=== PATIENT | female | born 1970 | race Caucasian/White ===

== ENCOUNTER 2022-08-20 14:09 | Outpatient (OUT) | payer OTHER, SELFPAY ==
--- NOTE | 2022-08-20 14:51 | XR_ITS ---
The [address] [address] Patient Name: MYRANDA VARNER MRN: [id number] date: 1970 Sex: F Assigned Patient Location: [facility] Current Patient Location: [facility] Accession/Order Number: [id number] Exam Date: 08/20/2022 14:51 Report Date: 08/20/2022 17:48 At the request of: EUGENIO ROJO Procedure: XR ankle LT min 3V PROCEDURE: XR foot LT min 3V, XR ankle LT min 3V HISTORY: LEFT FOOT PAIN ; history of left ankle fracture COMPARISON: XR ankle left 12/30/2018 FINDINGS: BONES:Prior plate and screw repair of lateral malleolus with new 3 mm backing out of the distal screw within the plate. Prior band effusion of the tibia-fibula syndesmosis. SOFT TISSUES:No visible soft tissue swelling. EFFUSION:None visible. OTHER: Negative. XR/XR ankle LT min 3V IMPRESSION: 1. No acute bone abnormality or significant degenerative joint disease. 2. Intact hardware, but there is slight backing out of the distal screw within the lateral malleolus since the 2019 study. Electronically authenticated by: FORD BONILLA Date: 08/20/2022 17:48
--- NOTE | 2022-08-20 14:51 | XR_ITS ---
The [address] [address] Patient Name: MYRANDA VARNER MRN: [id number] date: 1970 Sex: F Assigned Patient Location: [facility] Current Patient Location: [facility] Accession/Order Number: [id number] Exam Date: 08/20/2022 14:51 Report Date: 08/20/2022 17:48 At the request of: EUGENIO ROJO Procedure: XR foot LT min 3V PROCEDURE: XR foot LT min 3V, XR ankle LT min 3V HISTORY: LEFT FOOT PAIN ; history of left ankle fracture COMPARISON: XR ankle left 12/30/2018 FINDINGS: BONES:Prior plate and screw repair of lateral malleolus with new 3 mm backing out of the distal screw within the plate. Prior band effusion of the tibia-fibula syndesmosis. SOFT TISSUES:No visible soft tissue swelling. EFFUSION:None visible. OTHER: Negative. XR/XR foot LT min 3V IMPRESSION: 1. No acute bone abnormality or significant degenerative joint disease. 2. Intact hardware, but there is slight backing out of the distal screw within the lateral malleolus since the 2019 study. Electronically authenticated by: FORD BONILLA Date: 08/20/2022 17:48
== END 2022-08-20 14:10 | disposition home or self-care (01) ==
LOC: RAD 14:09
PROVIDERS: Visit Provider Podiatrist Foot & Ankle Surgery
DX: M19.072 Primary osteoarthritis, left ankle and foot (principal)
CPT/HCPCS: 73610; 73630

== ENCOUNTER 2022-08-27 12:58 | Outpatient (OUT) | payer OTHER, SELFPAY ==
--- NOTE | 2022-08-27 13:12 | CT_ITS ---
[place] [id number] Patient Name: MYRANDA VARNER MRN: [id number] date: 1970 Sex: F Assigned Patient Location: CT Current Patient Location: CT Accession/Order Number: [id number] Exam Date: 08/27/2022 13:17 Report Date: 08/27/2022 18:32 At the request of: EUGENIO ROJO Procedure: CT ankle LT wo con EXAMINATION: CT ankle LT wo con HISTORY: Post Traumatic Osteoarthritis M19.172 COMPARISON: 08/20/2022 TECHNIQUE: Multi-planar CT images were created without IV contrast. Dose reduction techniques were achieved by using automated exposure control and/or adjustment of mA and/or kV according to patient size and/or use of iterative reconstruction technique. FINDINGS: BONES: No acute fracture or dislocation. Mild to moderate tricompartmental osteoarthropathy of the knee with moderate narrowing of the medial joint space. Moderate to severe degenerative changes of the tibiotalar joint with asymmetric narrowing of the medial ankle mortise and subchondral mixed lytic and sclerotic changes primarily along the medial to midportion of the anterior tibial plafond and. Remote fixation of the distal fibula with a lateral plate and screws. Banding of the tibiofibular syndesmosis. Moderate enthesopathic spurring of the calcaneus SOFT TISSUES: Negative. No visible soft tissue swelling. EFFUSION: None visible. OTHER: Negative. 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
== END 2022-08-27 12:59 | disposition home or self-care (01) ==
LOC: CT 13:01
PROVIDERS: Visit Provider Podiatrist Foot & Ankle Surgery
DX: M19.172 Post-traumatic osteoarthritis, left ankle and foot (principal); T84.84XA Pain due to internal orthopedic prosthetic devices, implants and grafts, initial encounter
CPT/HCPCS: 73700

== ENCOUNTER 2022-09-19 11:02 | Outpatient (OUT) | payer OTHER, SELFPAY ==
--- NOTE | 2022-09-19 11:07 | ECG_ITS ---
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
--- NOTE | 2022-09-19 11:53 | PM.PRESUREVA ---
History of Present Illness History of Present Illness Chief complaint: post traumatic arthritis left ankle and foot Narrative: Patient presents for preadmission testing. Please see HPI from Dr. Jain dated 09/10/2022. Review of Systems ROS Narrative Please see ROS from Dr. Jain dated 09/10/2022. Note: Patient admits to dyspnea on exertion [facility] Medical History (Updated 09/19/22 @ 11:58 by Hui Lara NP) Surgical History (Updated 09/19/22 @ 11:34 by Hui Lara NP) (08/05/18) (10/15/18) (06/11/18) (2010) (09/16/18) Family History (Updated 09/19/22 @ 11:34 by Hui Lara NP) Other Family history of cervical cancer Family history of diabetes mellitus Family history of heart disease Family history of hypertension Family history of lung cancer Family history of myocardial infarction Family history of stroke Social History (Updated 09/19/22 @ 11:26 by Hui Lara NP) Within the past year, how often did you have a drink containing alcohol: monthly or less Smoking status: Former smoker Non-prescribed substance use: denies use Previous occupational history: factory Highest level of school completed/degree received: high school graduate Meds Home Medications and Allergies Home Medications Medication Instructions Recorded Confirmed Type ascorbic acid (vitamin C) 500 mg mg PO 09/19/22 History capsule aspirin 81 mg tablet,delayed 81 mg PO DAILY 09/19/22 09/19/22 History release (Adult Aspirin Regimen) cholecalciferol (vitamin D3) 1,250 1,250 mcg PO QDAY 09/19/22 09/19/22 History mcg (50,000 unit) capsule famotidine 20 mg tablet 20 mg PO Q12H 09/19/22 09/19/22 History ferrous sulfate 325 mg (65 mg 325 mg PO DAILY 09/19/22 09/19/22 History iron) tablet (Feosol) glucosamine 375 rt-qryjfvbzj-afz tab PO 09/19/22 History no1 500 mg-C 15 mg-ida 0.5 mg tablet (Nzjacwfughn-Rqwzofpjxrj-DYL Complex) ibuprofen 600 mg tablet 600 mg PO Q6H PRN pain 09/19/22 09/19/22 History lisinopril 20 1 tab PO QDAY 09/19/22 09/19/22 History mg-hydrochlorothiazide 12.5 mg tablet magnesium 250 mg tablet 250 mg PO DAILY 09/19/22 09/19/22 History melatonin 10 mg capsule 10 mg PO DAILY 09/19/22 09/19/22 History meloxicam 15 mg tablet 15 mg PO QDAY 09/19/22 09/19/22 History multivitamin (Daily Multi-Vitamin 1 tab PO DAILY 09/19/22 09/19/22 History tablet) rosuvastatin 10 mg tablet 10 mg PO QDAY 09/19/22 09/19/22 History vitamin B12 500 mcg-folic acid 400 1 tab PO DAILY 09/19/22 09/19/22 History mcg tablet Allergies Allergy/AdvReac Type Severity Reaction Status Date / Time meperidine [From Demerol] Allergy Vomiting Verified 09/19/22 11:20 onion Allergy Vomiting Verified 09/19/22 11:20 Exam Narrative Exam Narrative: Constitutional: Awake, alert, comfortable, well-appearing, nontoxic, interactive, vital signs as charted Head: Normocephalic, atraumatic Neck: Supple, normal appearance, normal range of motion, no meningeal signs, no lymphadenopathy Respiratory: No respiratory distress, breath sounds clear Cardiovascular: Regular rate and rhythm, strong and regular heart tones Psychiatric: Oriented ?3, normal affect Assessment and Plan Assessment and Plan (1) Painful orthopaedic hardware: (2) Post-traumatic osteoarthritis of ankle: Plan Left ankle arthroscopy and possible arthrotomy, removal of deep implanted hardware, stress exam under fluoroscopy, soft tissue repairs/releases as needed scheduled with Dr. Jain 09/25/2022.
[2022-09-19 12:06] LABS: Anion Gap 10.9; BUN Creatinine Ratio 25.5; Calcium 9.7 mg/dL (8.5-10.1); Carbon Dioxide 26.6 mmol/L (21.0-32.0); Chloride 105 mmol/L (98-107); Estimated GFR (African America >60 (>=60); Estimated GFR (Non-African Ame 54 (>=60); Glucose 100 mg/dL (74-106); Potassium 4.5 mmol/L (3.5-5.1); Sodium 138 mmol/L (136-145)
[2022-09-19 12:07] LABS: Basophils Percent Auto 0.5 % (0.2-2.0); Eosinophils Absolute Auto 0.3 10^3/uL (0.0-0.7); Eosinophils Percent Auto 3.8 % (0.9-7.0); Hematocrit 36.3 % (36.0-48.0); Hemoglobin 12.5 g/dL (12.0-16.0); Immature Granulocytes Abs Auto 0.02 10^3/uL (0.00-0.03); Immature Granulocytes Pct Auto 0.2 % (0.0-0.5); Lymphocytes Absolute Auto 2.5 10^3/uL (1.2-3.8); Lymphocytes Percent Auto 29.8 % (20.5-60.0); Mean Corpuscular HGB Conc 34.4 g/dL (29.9-35.2); Mean Corpuscular Hemoglobin 31.6 pg (26.7-34.0); Mean Corpuscular Volume 91.7 fL (81.0-99.0); Mean Platelet Volume 8.6 fL (9.5-13.5); Monocytes Absolute Auto 0.7 10^3/uL (0.3-0.8); Neutrophils Absolute Auto 4.9 10^3/uL (1.4-6.5); Neutrophils Percent Auto 57.7 % (43.0-75.0); Platelet Count 302 10^3/uL (150-450); Red Blood Count 3.96 10^6/uL (4.20-5.40); Red Cell Distribution Width 12.4 % (11.0-15.0); White Blood Count 8.5 10^3/uL (4.0-11.0)
== END 2022-09-19 11:03 | disposition home or self-care (01) ==
PROVIDERS: Visit Provider Podiatrist Foot & Ankle Surgery
DX: Z01.810 Encounter for preprocedural cardiovascular examination (principal); Z01.812 Encounter for preprocedural laboratory examination; M19.172 Post-traumatic osteoarthritis, left ankle and foot; T84.84XA Pain due to internal orthopedic prosthetic devices, implants and grafts, initial encounter
CPT/HCPCS: 80048; 85025; 93005; G0463

== ENCOUNTER 2022-10-09 06:51 | Day surgery (SDC) | payer OTHER, SELFPAY ==
[2022-09-19 11:51] VITALS: BP 124/83; PULSE 65; RESP 16; TEMP 36.3; O2SAT 97; BMI 32.6
[2022-10-09] VITALS (11 sets, daily range): BP systolic 86–121; BP diastolic 56–75; PULSE 68–96; RESP 13–23; TEMP 36.4–37; O2SAT 90–96; BMI 32.6
[2022-10-09 07:11] LABS: Glucometer 106 mg/dL (74-106)
[2022-10-09] MEDS: LACTATED RINGER'S SOLUTION 1,000 ML 50 ML IV ×2 (07:26→10:23)
[2022-10-09] MEDS: CEFAZOLIN SODIUM/DEXTROSE,ISO 2 GM/50 ML PIGGYBACK IV (09:12)
--- NOTE | 2022-10-09 09:42 | P.ORON_ITS ---
Brief Operative Note Date of procedure: 10/09/22 Pre-op diagnosis: left posttraumatic arthritis, painful hardware, ankle sprain sequela Post-op diagnosis: other (left ankle posttraumatic arthritis, ankle impingement, painful retained hardware, ankle sprain and fracture sequela status post ORIF of fibular fracture with syndesmotic stabilization) Procedure: PROCEDURE(S) PERFORMED: left ankle arthroscopy, removal of deep implanted orthopedic hardware and ankle arthrotomy with excision of osteophytes, stress examination under intraoperative fluoroscopy INTRAOPERATIVE FINDINGS: significant amount of chronic synovitis and soft tissue impingement noted in the anterior ankle as well as lateral gutter. Small osteophyte on the dorsal talar neck and larger osteophyte noted on the anterior distal tibial plafond. Advanced arthritic changes noted within the tibiotalar joint space. Fibular fracture is healed and syndesmosis stable after hardware removal. Ankle collateral ligaments were also stable. PROCEDURE IN DETAIL: Patient was identified in pre op and consent was reviewed. Correct side and site were identified and marked. Pre-op antibiotics were started. Patient was brought to OR suite and place on table in a supine position. General anesthesia was administered. Thigh tourniquet applied. Operative extremity was prepped and draped in usual sterile fashion and place in a well-padded leg leonardo. Formal time-out was performed. The intermediate dorsal cutaneous nerve was identified and marked. The ankle was insufflated with 15 cc of sterile saline and the foot, ankle and calf were exsanguinated and tourniquet inflated. Marcaine was injected as a standard ankle block while no anesthetic was injected into the joint. Standard anterior medial ankle portal was created with a scalpel. Blunt dissection was performed then the trochar and cannula were inserted with the ankle held in maximum dorsiflexion. Inspection of the ankle demonstrated significant acute and chronic synovitis with impingement. A needle was inserted into the anterior lateral ankle in standard safe zone and was identified then removed. A second 1 cm incision was created over anterior lateral ankle followed by blunt dissection to ensure the intermediate dorsal cutaneous nerve was protected. A 3.5 mm aggressive shaver was inserted into this portal and used to resect all impingement and synovitic tissue. osseous impingement was notable after removal of all soft tissue impingement. Chondromalacia and cartilage degeneration consistent with post right arthritis is noted of the talar dome and distal tibia. Arthroscopic instruments were removed. The medial portal was extended proximally and distally and the capsule was meticulously reflected exposing the anterior distal tibia and dorsal talar neck. With the use of osteotomes and rongeurs osteophytes were then excised and passed the back table. A rasp was used to contour appropriately. Fluoroscopy confirmed adequate removal of the osteophytes and range of motion dorsiflexion didn't improve without impingement. Incision was placed along the lateral fibula and a combination sharp and blunt dissection gained access to plate and screw construct. Then incision was placed on the medial aspect of the distal tibia. Blunt dissection down to suture button anchors was performed. Once the buttons were exposed the suture was cut allowing button to be removed. Then attention was drawn back to the fibula where the remainder of the suture button anchor was removed in total. The screws were removed with appropriate screwdriver and the plate was removed with the aid of an osteotome. Fracture was healed and bone quality was within normal limits given patient's age and gender. Screw holes were curetted until healthy bleeding bone. The ankle joint was then stressed in all planes including syndesmotic and was noted to be stable. Surgical sites were irrigated copiously saline and incisions were closed in layers. The tourniquet was deflated with a prompt hyperemic response. A dry sterile dressing was applied and a cam boot will be applied in the recovery room. Patient tolerated the procedure and anesthesia well was transferred to recovery room with vital signs stable and brisk capillary refill to the toes. POSTOPERATIVE PLAN: Discharge home under family's care Post op instructions provided verbally and written prescription(s) were placed in chart weightbearing as tolerated in cam boot until incisions have healed Follow-up in 1 week Implants: none Anesthesia: General-LMA Surgeon: Sudeep Jain Computer Service Technician: Gianni Altman Estimated blood loss (mL): 10 Pathology: none sent Condition: stable Disposition: PACU Preoperative Details Reason for procedure: Patient is a 52 year old female who underwent left ankle O RIF with syndesmotic repair by Dr. Alberts on 10/15/21. patient presented to my office relating to persistent pain particularly over the lateral malleolus where the plate and screws were palpable. She also related that she has difficulty with uneven surfaces and feels as if the ankle is unstable. Her past medical history significant for vitamin D deficiency and peripheral neuropathy therefore a CT scan was ordered which confirmed that fractures were healed and that the syndesmosis was reduced although it was significantly arthritic. In addition there was anterior tibial and dorsal talar neck osteophyte. clinically patient had pain with maximum ankle joint dorsiflexion as well as direct palpation over these osteophytes. I recommended arthroscopy, stability testing and hardware removal with possible repairs of ligaments as needed. I did however discuss that on her CT her arthritic changes were advanced and there were cystic degeneration noted in the talar body. Due to these findings patient may require more extensive reconstructive surgery in the future however given recovery is much shorter with the proposed procedure patient agreed to to proceed knowing that she could require additional surgery in the future. I reviewed the possible risks and benefits and all questions were answered to her satisfaction.
--- NOTE | 2022-10-09 11:00 | FL_ITS ---
The [address] [address] Patient Name: MYRANDA VARNER MRN: [id number] date: 1970 Sex: F Assigned Patient Location: [facility] Current Patient Location: [facility] Accession/Order Number: [id number] Exam Date: 10/09/2022 09:55 Report Date: 10/10/2022 07:30 At the request of: EUGENIO ROJO Procedure: FL fluoroscopy <1hr EXAMINATION: FL fluoroscopy <1hr HISTORY: LEFT ANKLE HARWEAR REMOVAL COMPARISON: No relevant comparison available. FLUOROSCOPY TIME: Fluoro time measures 29.7 seconds, 1.11 mgy and 5 images were obtained. TECHNIQUE: Standard level fluoroscopic mode of operation utilized. FINDINGS: Intraprocedural images demonstrate removal of the tibiofibular syndesmosis device as well as the lateral fibular plate and screws. Anatomic alignment. Joint air likely postsurgical FL/FL fluoroscopy <1hr IMPRESSION: Interval removal of internal fixation hardware Electronically authenticated by: DOMINGO WYMAN Date: 10/10/2022 07:30
[2022-10-09] MEDS: BUPIVACAINE HCL 0.5% PF 50 MG/10 ML VIAL 20 ML INJ (11:41)
[2022-10-09] MEDS: BETAMETHASONE ACE/BETAMETHASONE SOD PHOS 30 MG/5 ML 12 MG IM (11:42)
--- NOTE | 2022-10-09 12:16 | XR_ITS ---
The [address] [address] Patient Name: MYRANDA VARNER MRN: [id number] date: 1970 Sex: F Assigned Patient Location: [facility] Current Patient Location: [facility] Accession/Order Number: [id number] Exam Date: 10/09/2022 12:20 Report Date: 10/09/2022 12:53 At the request of: BEVERLY THOMAS Procedure: XR ankle LT min 3V PROCEDURE: XR ankle LT min 3V HISTORY: postop xr pacu COMPARISON: XR ankle left 08/20/2022 FINDINGS: BONES:Interval removal of distal fibula plate and screws and tibia-fibula syndesmosis bands. No fracture or dislocation. Calcaneal plantar spur. SOFT TISSUES:Subcutaneous free air and swelling consistent with recent surgery. EFFUSION:None visible. OTHER: Negative. XR/XR ankle LT min 3V IMPRESSION: 1. Postsurgical changes as detailed above. Electronically authenticated by: FORD BONILLA Date: 10/09/2022 12:53
[2022-10-09 12:23] LABS: Glucometer 121 mg/dL (74-106)
== END 2022-10-09 13:00 | disposition home or self-care (01) ==
PROVIDERS: Visit Provider Podiatrist Foot & Ankle Surgery
PROC: (CPT 20680; principal; 2022-10-09 08:00)
DX: M19.172 Post-traumatic osteoarthritis, left ankle and foot (principal); T84.84XA Pain due to internal orthopedic prosthetic devices, implants and grafts, initial encounter; I10 Essential (primary) hypertension; Z87.891 Personal history of nicotine dependence; Z79.82 Long term (current) use of aspirin; Z79.899 Other long term (current) drug therapy; Z90.710 Acquired absence of both cervix and uterus; S93.432S Sprain of tibiofibular ligament of left ankle, sequela; M24.572 Contracture, left ankle
CPT/HCPCS: 20680; 27610; 29898; 36415; 73610; 76000; 82948; J0702; J1170; J2704

== ENCOUNTER 2023-05-19 13:12 | Outpatient (OUT) | payer OTHER, SELFPAY ==
--- NOTE | 2023-05-19 | XR_ITS ---
[address] [address] Patient Name: MYRANDA VARNER MRN: [id number] date: 1970 Sex: F Assigned Patient Location: Current Patient Location: Accession/Order Number: [id number] Exam Date: 05/19/2023 13:25 Report Date: 05/19/2023 14:08 At the request of: EUGENIO ROJO Procedure: XR foot LT min 3V PROCEDURE: XR foot LT min 3V, XR ankle LT min 3V COMPARISON: 08/20/2022 HISTORY: LEFT FOOT PAIN FINDINGS: BONES:Interval removal of the hardware. Moderate to severe degenerative changes of the tibiotalar joint with near iswm-ym-[id number] articulation along the medial aspect. Bone fragment corticated inferior medial malleolus, remote injury. Mild to moderate degenerative changes with joint space narrowing. Moderate enthesopathic spurring of the calcaneus at the Achilles and plantar insertions SOFT TISSUES:Negative. No visible soft tissue swelling. EFFUSION:None visible. OTHER: Negative. XR/XR foot LT min 3V IMPRESSION: Interval removal of hardware Degenerative changes with near gjce-sb-[id number] articulation of the medial tibiotalar joint Electronically authenticated by: DOMINGO WYMAN Date: 05/19/2023 14:08
--- NOTE | 2023-05-19 | XR_ITS ---
[address] [address] Patient Name: MYRANDA VARNER MRN: [id number] date: 1970 Sex: F Assigned Patient Location: Current Patient Location: Accession/Order Number: [id number] Exam Date: 05/19/2023 13:25 Report Date: 05/19/2023 14:08 At the request of: EUGENIO ROJO Procedure: XR ankle LT min 3V PROCEDURE: XR foot LT min 3V, XR ankle LT min 3V COMPARISON: 08/20/2022 HISTORY: LEFT FOOT PAIN FINDINGS: BONES:Interval removal of the hardware. Moderate to severe degenerative changes of the tibiotalar joint with near qywt-fi-pzhz articulation along the medial aspect. Bone fragment corticated inferior medial malleolus, remote injury. Mild to moderate degenerative changes with joint space narrowing. Moderate enthesopathic spurring of the calcaneus at the Achilles and plantar insertions SOFT TISSUES:Negative. No visible soft tissue swelling. EFFUSION:None visible. OTHER: Negative. XR/XR ankle LT min 3V IMPRESSION: Interval removal of hardware Degenerative changes with near lvan-fs-tmcb articulation of the medial tibiotalar joint Electronically authenticated by: DOMINGO WYMAN Date: 05/19/2023 14:08
== END 2023-05-19 13:13 | disposition home or self-care (01) ==
LOC: EC 13:12
PROVIDERS: Visit Provider Podiatrist Foot & Ankle Surgery
DX: M19.072 Primary osteoarthritis, left ankle and foot (principal); S93.05XS Dislocation of left ankle joint, sequela; Z98.890 Other specified postprocedural states
CPT/HCPCS: 73610; 73630

== ENCOUNTER 2023-06-10 10:28 | Outpatient (OUT) | payer OTHER, SELFPAY ==
--- NOTE | 2023-06-10 10:34 | MR_ITS ---
The [address] [address] Patient Name: MYRANDA VARNER MRN: [id number] date: 1970 Sex: F Assigned Patient Location: MRI Current Patient Location: Accession/Order Number: [id number] Exam Date: 06/10/2023 10:45 Report Date: 06/11/2023 08:23 At the request of: EUGENIO ROJO Procedure: MR ankle LT wo con EXAM: MR ankle LT wo con REASON FOR EXAM: Ankle Fracture, Degenerative Joint Disease. TECHNIQUE: Multiplanar, multisequence imaging of the left ankle was performed without contrast COMPARISON: Radiographs 05/19/2023. FINDINGS: There is fusiform thickening and intermediate signal of the Achilles tendon with distal Achilles enthesophytes consistent with tendinosis. No tear identified. No significant fluid identified in the retrocalcaneal bursa. The plantar fascia is thickened with intermediate signal within inferior calcaneal spur. An acute tear not identified. Laterally, the peroneal tendons demonstrate mild thickening and intermediate signal consistent with tendinosis. No tear identified. The superficial peroneal retinaculum is intact. Thickening and intermediate signal of the anterior talofibular ligament and anterior syndesmotic ligament is consistent with prior lateral ligamentous injury. No evidence of acute lateral ligamentous injury. Medially, the medial flexor tendons demonstrate grossly normal thickness and signal without tendinosis or tear. The deep deltoid ligament is dysmorphic representing prior deep deltoid ligament sprain. The visualized spring ligament is intact. The Lisfranc ligament is intact. Anteriorly, the anterior extensor tendons demonstrate normal thickness and signal without tendinosis or tear. The bone marrow signal is without acute fracture. There are surgical changes from prior ORIF as well as removal of hardware. There is intermediate to high-grade chondrosis of the tibiotalar articular cartilage, slowly involving the medial talar dome with subchondral edema and sclerosis. Marginal osteophytes are present. A small tibiotalar effusion is present. The subtalar joints intact. The sinus tarsi is nonedematous. The midfoot is congruent with mild to moderate osteoarthritis, most notable at the third TMT joint. The plantar musculature demonstrates normal bulk and signal. Remaining soft tissues are unremarkable. MR/MR ankle LT wo con IMPRESSION: 1. Postsurgical changes from prior ORIF with subsequent removal of hardware. No acute fracture identified. 2. Sequela of prior medial lateral ligamentous injury. No evidence of acute lateral ligamentous injury. 3. Achilles tendinosis without tear. 4. Chronic plantar fasciopathy. 5. Peroneal tendinosis without tear. 6. Moderate to severe tibiotalar osteoarthritis, likely posttraumatic. Mild to moderate midfoot osteoarthritis, most notable at the third TMT joint. Electronically authenticated by: JORGE LUIS GRIGGS Date: 06/11/2023 08:23
== END 2023-06-10 10:29 | disposition home or self-care (01) ==
LOC: MRI 10:30
PROVIDERS: Visit Provider Podiatrist Foot & Ankle Surgery
DX: S82.892D Other fracture of left lower leg, subsequent encounter for closed fracture with routine healing (principal); Z98.890 Other specified postprocedural states; M19.072 Primary osteoarthritis, left ankle and foot; M72.2 Plantar fascial fibromatosis
CPT/HCPCS: 73721

== ENCOUNTER 2024-03-03 13:43 | Outpatient (OUT) | payer OTHER, SELFPAY ==
--- NOTE | 2024-03-03 | XR_ITS ---
The [address] [address] Patient Name: MYRANDA VARNER MRN: [id number] date: 1970 Sex: F Assigned Patient Location: Current Patient Location: Accession/Order Number: [id number] Exam Date: 03/03/2024 13:44 Report Date: 03/04/2024 06:45 At the request of: CAROL MCRGATH Procedure: XR ankle LT min 3V PROCEDURE: XR ankle LT min 3V HISTORY: LEFT ANKLE PAIN COMPARISON: XR ankle left 05/19/2023 FINDINGS: BONES:Marked narrowing of the medial aspect of the tibiotalar joint. Evidence of prior trauma and repair with subsequent hardware removal of distal fibula. Large calcaneal plantar spur. Flattening of plantar arch. SOFT TISSUES:No visible soft tissue swelling. EFFUSION:None visible. OTHER: Negative. XR/XR ankle LT min 3V IMPRESSION: 1. No appreciable acute abnormality. 2. Marked joint space narrowing of the ankle joint suggesting cartilage loss. No significant change compared to prior study. Electronically authenticated by: FORD BONILLA Date: 03/04/2024 06:45
== END 2024-03-03 13:44 | disposition home or self-care (01) ==
LOC: EC 13:43
PROVIDERS: Visit Provider Physician Assistant
DX: M25.572 Pain in left ankle and joints of left foot (principal)
CPT/HCPCS: 73610